=== PATIENT | female | born 1995 | race Caucasian/White ===

== ENCOUNTER 2022-02-06 12:21 | Emergency (ER) | payer OTHER ==
[2022-02-06 13:21] VITALS: TEMP 98.2
--- NOTE | 2022-02-06 14:15 | ED ---
Nausea/Vomiting/Diarrhea HPI - General Chief complaint: Nausea/Vomiting/Diarrhea Stated complaint: 13 wks preg/N&V Time Seen by Provider: 02/06/22 14:04 Source: patient, RN notes reviewed Mode of arrival: ambulatory - History of Present Illness Initial comments: Patient is a 26-year-old female presents the emergency room with her spouse with complaints of severe nausea and vomiting. She reports that she has had nausea by vomiting her entire but over the last 24 hours she has been unable to keep her anti-medics down and was advised by her bed to go to the emergency room. She reports that now that she was 13 weeks she was optimistic that her nausea would improve however as stated above symptoms have worsened over the last 24 hours. She has tried ODT Zofran and, oral promethazine and was recently given a prescription for Reglan however she has not taken that medication yet. She denies any other significant past medical history, complaints or concerns. - Related Data Previous Rx's Medication Instructions Recorded Ondansetron Odt [Zofran Odt] 8 mg PO Q8HR PRN 10 Days #30 tab 02/06/22 Promethazine Suppository 12.5 mg RECTAL PC-BID PRN #10 02/06/22 [Phenergan] suppositor Allergies Allergy/AdvReac Type Severity Reaction Status Date / Time Penicillins Allergy Rash/Hives Verified 02/06/22 13:21 Review of Systems ROS Statement: Those systems with pertinent positive or pertinent negative responses have been documented in the HPI. ROS Other: All systems not noted in ROS Statement are negative. Past Medical History Past Medical History: No Reported History History of Any Multi-Drug Resistant Organisms: None Reported Past Surgical History: No Surgical Hx Reported Past Psychological History: No Psychological Hx Reported Smoking Status: Never smoker Past Alcohol Use History: None Reported Past Drug Use History: None Reported General Exam General appearance: alert, in no apparent distress Head exam: Present: atraumatic, normocephalic, normal inspection Eye exam: Present: normal appearance, PERRL, EOMI. Absent: scleral icterus, conjunctival injection, periorbital swelling ENT exam: Present: normal exam, mucous membranes moist Neck exam: Present: normal inspection. Absent: tenderness, meningismus, lymphadenopathy Respiratory exam: Present: normal lung sounds bilaterally. Absent: respiratory distress, wheezes, rales, rhonchi, stridor Cardiovascular Exam: Present: regular rate, normal rhythm, normal heart sounds. Absent: systolic murmur, diastolic murmur, rubs, gallop, clicks GI/Abdominal exam: Present: soft, normal bowel sounds Back exam: Present: normal inspection Neurological exam: Present: alert, oriented X3, CN II-XII intact Psychiatric exam: Present: normal affect, normal mood Skin exam: Present: warm, dry, intact, normal color. Absent: rash Course Vital Signs 02/06/22 02/06/22 13:15 15:11 Temperature 98.2 F Pulse Rate 75 62 Respiratory 18 16 Rate Blood Pressure 100/61 109/67 O2 Sat by Pulse 100 100 Oximetry Medical Decision Making - Medical Decision Making Nausea improved with Zofran. Electrolytes with derangement noted. IV fluids 0.9 normal saline to be given. No indication for further diagnostic testing at this time except repeat BMP after normal saline bolus. Potassium level improved after 0.9 fluid bolus. Still with metabolic acidosis noted. Will give additional IV fluids of D5 o.45 with 1 amp of bicarbonate and monitor response. Patient currently resting comfortably. Patient responded well to IV Zofran and IV hydration. Will arrange discharge and refill her Zofran ODT and also provide promethazine suppositories as needed. Encourage follow-up with PCP and DIVORCE MEDIATOR. Case discussed with Dr. Starks. - Lab Data Result diagrams: 02/06/22 16:32 Lab Results 02/06/22 02/06/22 02/06/22 Range/Units 15:00 15:00 15:00 Sodium 135 L (137-145) mmol/L Potassium 5.2 H (3.5-5.1) mmol/L Chloride 105 (98-107) mmol/L Carbon Dioxide 17 L (22-30) mmol/L Anion Gap 13 mmol/L BUN 7 (7-17) mg/dL Creatinine 0.39 L (0.52-1.04) mg/dL Est GFR (CKD-EPI)AfAm >90 (>60 ml/min/1.73 sqM) Est GFR (CKD-EPI)NonAf >90 (>60 ml/min/1.73 sqM) Glucose 61 L (74-99) mg/dL Calcium 9.4 (8.4-10.2) mg/dL Coronavirus (PCR) Not Detected (Not Detectd) Influenza Type A RNA Not Detected (Not Detectd) Influenza Type B (PCR) Not Detected (Not Detectd) 02/06/22 Range/Units 16:32 Sodium 135 L (137-145) mmol/L Potassium 4.0 (3.5-5.1) mmol/L Chloride 109 H (98-107) mmol/L Carbon Dioxide 16 L (22-30) mmol/L Anion Gap 10 mmol/L BUN 7 (7-17) mg/dL Creatinine 0.34 L (0.52-1.04) mg/dL Est GFR (CKD-EPI)AfAm >90 (>60 ml/min/1.73 sqM) Est GFR (CKD-EPI)NonAf >90 (>60 ml/min/1.73 sqM) Glucose 75 (74-99) mg/dL Calcium 8.1 L (8.4-10.2) mg/dL Coronavirus (PCR) (Not Detectd) Influenza Type A RNA (Not Detectd) Influenza Type B (PCR) (Not Detectd) Disposition Clinical Impression: Nausea and vomiting during Disposition: HOME SELF-CARE Condition: Stable Instructions (If sedation given, give patient instructions): Acute Nausea and Vomiting (ED) Additional Instructions: Utilize Zofran and/or promethazine as needed for nausea. Please follow-up with your COTTON CLASSER AIDE per their recommendations. Along with her PCP. Drink plenty of fluids and follow a bland diet. Please return to the Emergency Department if symptoms worsen or any other concerns. Prescriptions: Promethazine Suppository [Phenergan] 12.5 mg RECTAL PC-BID PRN #10 suppositor PRN Reason: Vomiting Ondansetron Odt [Zofran Odt] 8 mg PO Q8HR PRN 10 Days #30 tab PRN Reason: Nausea Is patient prescribed a controlled substance at d/c from ED?: No Referrals: None,Stated [Primary Care Provider] - 1-2 days (Your COTTON CLASSER AIDE) Time of Disposition: 18:59
[2022-02-06] MEDS ORDERED: ONDANSETRON 4 MG/2 ML VIAL IVP STA (14:19)
[2022-02-06] MEDS ORDERED: SODIUM CHLORIDE 0.9% 1,000 ML IV STA (14:19)
[2022-02-06 15:12] VITALS: BP 109/67; PULSE 62; RESP 16
[2022-02-06 15:24] LABS: African American GFR (CKD) >90 (>60 ml/min/1.73 sqM); Anion Gap 13 mmol/L; Blood Urea Nitrogen 7 mg/dL (7-17); Calcium 9.4 mg/dL (8.4-10.2); Carbon Dioxide 17 mmol/L (22-30); Chloride 105 mmol/L (98-107); Glucose 61 mg/dL (74-99); Non-African American GFR(CKD) >90 (>60 ml/min/1.73 sqM); Sodium 135 mmol/L (137-145)
[2022-02-06 15:26] LABS: Potassium 5.2 mmol/L (3.5-5.1)
[2022-02-06 16:49] LABS: African American GFR (CKD) >90 (>60 ml/min/1.73 sqM); Anion Gap 10 mmol/L; Blood Urea Nitrogen 7 mg/dL (7-17); Calcium 8.1 mg/dL (8.4-10.2); Carbon Dioxide 16 mmol/L (22-30); Chloride 109 mmol/L (98-107); Glucose 75 mg/dL (74-99); Non-African American GFR(CKD) >90 (>60 ml/min/1.73 sqM); Sodium 135 mmol/L (137-145)
[2022-02-06] MEDS ORDERED: DEXTROSE 5%-0.45% NACL 1,000 ML with SODIUM BICARB (1 MEQ/ML) 50 ML IV ONE ×2 (18:00)
== END 2022-02-06 22:10 | disposition home or self-care (01) ==
LOC: EC 12:21
DX: O21.9 Vomiting of pregnancy, unspecified (principal); Z20.822 Contact with and (suspected) exposure to COVID-19; Z88.0 Allergy status to penicillin; Z3A.13 13 weeks gestation of pregnancy
CPT/HCPCS: 36415; 80048; 87502; 87635; 99284; 96365; 96366; 96361; 96375; J2405

== ENCOUNTER 2022-03-16 15:37 | Emergency (ER) | payer OTHER ==
[2022-03-16 15:51] VITALS: RESP 18
[2022-03-16] MEDS ORDERED: SODIUM CHLORIDE 0.9% 1,000 ML IV STA (16:08)
[2022-03-16] MEDS ORDERED: ONDANSETRON 4 MG/2 ML VIAL IVP STA (16:08)
[2022-03-16 16:37] LABS: Basophils % (A) 0 %; Eosinophils # (A) 0.2 k/uL (0-0.7); Eosinophils % (A) 1 %; HCT 37.3 % (34.0-46.0); HGB 12.6 gm/dL (11.4-16.0); Lymphocytes # (A) 1.3 k/uL (1.0-4.8); Lymphocytes % (A) 11 %; MCH 32.6 pg (25.0-35.0); MCHC 33.7 g/dL (31.0-37.0); MCV 96.6 fL (80.0-100.0); Mean Platelet Volume 9.2; Monocytes # (A) 0.4 k/uL (0-1.0); Monocytes % (A) 3 %; Neutrophils % (A) 83 %; Platelet Count 228 k/uL (150-450); RBC 3.86 m/uL (3.80-5.40); RDW 13.5 % (11.5-15.5)
[2022-03-16] MEDS ORDERED: ACETAMINOPHEN TAB 325 MG TAB PO STA (16:44)
[2022-03-16 16:46] LABS: ALT 17 U/L (4-34); AST 38 U/L (14-36); African American GFR (CKD) >90 (>60 ml/min/1.73 sqM); Albumin 3.9 g/dL (3.5-5.0); Alkaline Phosphatase 58 U/L (38-126); Amylase 58 U/L (30-110); Anion Gap 9 mmol/L; Blood Urea Nitrogen 5 mg/dL (7-17); Calcium 9.5 mg/dL (8.4-10.2); Carbon Dioxide 23 mmol/L (22-30); Chloride 104 mmol/L (98-107); Glucose 96 mg/dL (74-99); Lipase 77 U/L (23-300); Non-African American GFR(CKD) >90 (>60 ml/min/1.73 sqM); Potassium 3.6 mmol/L (3.5-5.1); Sodium 136 mmol/L (137-145); Total Bilirubin 0.4 mg/dL (0.2-1.3); Total Protein 6.7 g/dL (6.3-8.2)
--- NOTE | 2022-03-16 16:49 | US ---
EXAMINATION TYPE: US abdomen limited DATE OF EXAM: 03/16/2022 COMPARISON: NONE CLINICAL HISTORY: B/L upper quadrant abdominal pain. Pt states ABD pain TECHNIQUE: Multiple sonographic images of the right upper quadrant are obtained. FINDINGS: EXAM MEASUREMENTS: Liver Length: 14.1 cm Gallbladder Wall: 0.2 cm CBD: 0.7 cm Right Kidney: 10.4 x 3.9 x 4.7 cm ASSOCIATE SOFTWARE ENGINEER NOTES: Pancreas: Obscured by bowel gas Liver: Visualized portions appeared wnl Gallbladder: Gallstones at fundus Evidence for sonographic Abreu's sign: Yes CBD: Dilated Right Kidney: Visualized portions appeared wnl IMPRESSION: There are multiple small gallstones. Intrahepatic bile ducts are not dilated. Common bile duct is rel atively large and could relate to gallbladder dysfunction.
--- NOTE | 2022-03-16 16:52 | US ---
EXAMINATION TYPE: US OB >= 14 wk fetus DATE OF EXAM: 03/16/2022 COMPARISON: None CLINICAL HISTORY: abdominal painABD pain TECHNIQUE: Transabdominal (TA) GESTATIONAL AGE / DATING Physician Established: (18 weeks/4 days) EDC: 08/13/2022 Dates by LMP: LMP unknown Dates by First Scan: No previous this is first scan Dates by Current Scan: (18weeks/6 days) EDC: 08/11/2022 SURVEY IUP: Single PLACENTA: Anterior PREVIA: No Previa IHS: 10.9 Normal CERVICAL LENGTH (transabdominal: norm > 3.0cm): 3.3cm BIOMETRY PRESENTATION: Vertex BPD: 4.4 cm 19 weeks / 2 days HC: 16.4 cm 19 weeks / 1 days AC: 12.9 cm 18 weeks / 4 days FL: 27 cm 18 weeks / 2 days ESTIMATED WEIGHT IN GRAMS: 242 grams ESTIMATED WEIGHT IN LBS/OZ: 0 lbs. 9 oz. WEIGHT PERCENTAGE BASED ON ESTABLISHED DATES: 39% HC/AC: 1.27 Normal FL/AC: 21 Normal HEART RATE: 147 bpm RHYTHM: Normal Single, viable IUP- No abnormality visualized at this time IMPRESSION: The ultrasound gestational age is 18 weeks and 6 days. No complicating process seen.
--- NOTE | 2022-03-16 17:42 | ED ---
Abdominal Pain HPI - General Chief Complaint: Abdominal Pain Stated Complaint: abd pain Time Seen by Provider: 03/16/22 16:00 Source: patient, EMS Mode of arrival: EMS - History of Present Illness Initial Comments: Patient is a 26-year-old female currently about 17 weeks presenting with chief complaint of upper abdominal pain. Patient states that she was at work when she felt sudden onset of bilateral upper quadrant pain. She says the pain was sharp in 10 out of 10, she felt nauseous and was worried she may pass out due to the pain. Patient had coworkers called EMS. Patient states that at this time the patient is about a 3 out of 10. She denies any pelvic cramping or vaginal bleeding or discharge. Patient last saw her collision repair technician about one week ago and states that everything was normal in her . She denies any diarrhea, hematochezia, melena, dysuria, hematuria, fever, chills, chest pain, shortness of breath. - Related Data Home Medications Medication Instructions Recorded Confirmed Docusate [Colace] 100 mg PO DAILY PRN 03/16/22 03/16/22 Folic Acid 1 mg PO DAILY 03/16/22 03/16/22 Melatonin 5 mg PO HS PRN 03/16/22 03/16/22 Vft-Rqzz-Dwzce Acid 1 cap PO DAILY 03/16/22 03/16/22 [-U Capsule (formulary)] Previous Rx's Medication Instructions Recorded Ondansetron Odt [Zofran Odt] 8 mg PO Q8HR PRN 10 Days #30 tab 02/06/22 Allergies Allergy/AdvReac Type Severity Reaction Status Date / Time Penicillins Allergy Rash/Hives Verified 03/16/22 17:18 Review of Systems ROS Statement: Those systems with pertinent positive or pertinent negative responses have been documented in the HPI. ROS Other: All systems not noted in ROS Statement are negative. Past Medical History Past Medical History: No Reported History History of Any Multi-Drug Resistant Organisms: None Reported Past Surgical History: No Surgical Hx Reported Past Psychological History: No Psychological Hx Reported Smoking Status: Never smoker Past Alcohol Use History: None Reported Past Drug Use History: None Reported General Exam Limitations: no limitations General appearance: alert, in no apparent distress Head exam: Present: atraumatic, normocephalic, normal inspection Eye exam: Present: normal appearance, EOMI. Absent: scleral icterus, periorbital swelling Neck exam: Present: normal inspection, full ROM Respiratory exam: Present: normal lung sounds bilaterally. Absent: respiratory distress, wheezes, rales, rhonchi, stridor Cardiovascular Exam: Present: regular rate, normal rhythm, normal heart sounds. Absent: systolic murmur, diastolic murmur, rubs, gallop, clicks GI/Abdominal exam: Present: soft. Absent: distended, tenderness, guarding, rebound, rigid Neurological exam: Present: alert, oriented X3, CN II-XII intact Psychiatric exam: Present: normal affect, normal mood Skin exam: Present: warm, dry, intact, normal color. Absent: rash Course Vital Signs 03/16/22 03/16/22 15:46 18:16 Pulse Rate 61 62 Respiratory 18 18 Rate Blood Pressure 98/54 98/64 O2 Sat by Pulse 100 96 Oximetry Medical Decision Making - Medical Decision Making Patient is a 26-year-old female currently about 17 weeks presenting with chief complaint of bilateral upper quadrant pain. Pain was sudden in onset today, associated with nausea. No vaginal bleeding or pelvic cramping. At time of presentation patient states that pain has drastically improved. On examination abdomen is soft, nontender, no Abreu sign. WBC 12.0, likely a result of . ultrasound shows gestational age of 18 weeks and 6 days. Process seen. Heart rate 147. Ultrasound shows multiple small gallstones. Common bile duct is dilated measuring 0.7 cm, intrahepatic bile ducts are not dilated. On reassessment patient states that her pain is still very minimal. She appears stable for discharge with outpatient follow-up at this time. Follow-up with PUBLISHING EDITOR and surgery. Report back to ER if any new or worsening symptoms. Discussed return parameters answered all questions. Patient conveyed verbal understanding and agreed to the plan. I discussed this case with my attending Dr. Alves. - Lab Data Result diagrams: 03/16/22 16:25 03/16/22 16:25 Lab Results 03/16/22 03/16/22 03/16/22 Range/Units 16:25 16:25 16:25 WBC 12.0 H (3.8-10.6) k/uL RBC 3.86 (3.80-5.40) m/uL Hgb 12.6 (11.4-16.0) gm/dL Hct 37.3 (34.0-46.0) % MCV 96.6 (80.0-100.0) fL MCH 32.6 (25.0-35.0) pg MCHC 33.7 (31.0-37.0) g/dL RDW 13.5 (11.5-15.5) % Plt Count 228 (150-450) k/uL MPV 9.2 Neutrophils % 83 % Lymphocytes % 11 % Monocytes % 3 % Eosinophils % 1 % Basophils % 0 % Neutrophils # 10.0 H (1.3-7.7) k/uL Lymphocytes # 1.3 (1.0-4.8) k/uL Monocytes # 0.4 (0-1.0) k/uL Eosinophils # 0.2 (0-0.7) k/uL Basophils # 0.0 (0-0.2) k/uL Sodium 136 L (137-145) mmol/L Potassium 3.6 (3.5-5.1) mmol/L Chloride 104 (98-107) mmol/L Carbon Dioxide 23 (22-30) mmol/L Anion Gap 9 mmol/L BUN 5 L (7-17) mg/dL Creatinine 0.36 L (0.52-1.04) mg/dL Est GFR (CKD-EPI)AfAm >90 (>60 ml/min/1.73 sqM) Est GFR (CKD-EPI)NonAf >90 (>60 ml/min/1.73 sqM) Glucose 96 (74-99) mg/dL Plasma Lactic Acid Aubrey 1.1 (0.7-2.0) mmol/L Calcium 9.5 (8.4-10.2) mg/dL Total Bilirubin 0.4 (0.2-1.3) mg/dL AST 38 H (14-36) U/L ALT 17 (4-34) U/L Alkaline Phosphatase 58 (38-126) U/L Total Protein 6.7 (6.3-8.2) g/dL Albumin 3.9 (3.5-5.0) g/dL Amylase 58 (30-110) U/L Lipase 77 (23-300) U/L Disposition Clinical Impression: Gallstones Disposition: HOME SELF-CARE Condition: Good Instructions (If sedation given, give patient instructions): Biliary Colic (ED), Gallstones (ED), Low Fat Diet (ED) Additional Instructions: Follow-up with PUBLISHING EDITOR and surgery. Report back to ER with any new or worsening symptoms. These include but are not limited to fever, chills, vomiting, increased pain, yellow in the findings, elevated heart rate. Is patient prescribed a controlled substance at d/c from ED?: No Referrals: None,Stated [Primary Care Provider] - 1-2 days Jose Alberto Conner MD [STAFF PHYSICIAN] - 1-2 days Time of Disposition: 17:41
[2022-03-16 18:17] VITALS: BP 98/64; PULSE 62
== END 2022-03-16 18:20 | disposition home or self-care (01) ==
LOC: EC 15:37
DX: O26.612 Liver and biliary tract disorders in pregnancy, second trimester (principal); K80.80 Other cholelithiasis without obstruction; Z3A.18 18 weeks gestation of pregnancy; Z79.899 Other long term (current) drug therapy; Z88.0 Allergy status to penicillin
CPT/HCPCS: 36415; 80053; 82150; 83605; 83690; 85025; 76705; 76805; 99284; 96374; 96361; J2405

== ENCOUNTER 2022-09-01 16:08 | Emergency (ER) | payer BC, OTHER ==
[2022-09-01 16:26] VITALS: RESP 16
[2022-09-01 17:17] LABS: Basophils # (A) 0.1 k/uL (0-0.2); Basophils % (A) 1 %; Eosinophils # (A) 0.2 k/uL (0-0.7); Eosinophils % (A) 2 %; HCT 43.4 % (34.0-46.0); HGB 14.4 gm/dL (11.4-16.0); Lymphocytes # (A) 1.5 k/uL (1.0-4.8); Lymphocytes % (A) 18 %; MCH 29.4 pg (25.0-35.0); MCHC 33.2 g/dL (31.0-37.0); MCV 88.5 fL (80.0-100.0); Mean Platelet Volume 7.7; Monocytes # (A) 0.5 k/uL (0-1.0); Monocytes % (A) 5 %; Neutrophils # (A) 6.4 k/uL (1.3-7.7); Neutrophils % (A) 73 %; Platelet Count 388 k/uL (150-450); RDW 14.6 % (11.5-15.5); WBC 8.7 k/uL (3.8-10.6)
[2022-09-01 17:26] LABS: ALT 709 U/L (4-34); AST 740 U/L (14-36); African American GFR (CKD) >90 (>60 ml/min/1.73 sqM); Albumin 4.4 g/dL (3.5-5.0); Alkaline Phosphatase 412 U/L (38-126); Amylase 67 U/L (30-110); Anion Gap 9 mmol/L; Blood Urea Nitrogen 14 mg/dL (7-17); Calcium 9.4 mg/dL (8.4-10.2); Carbon Dioxide 26 mmol/L (22-30); Chloride 104 mmol/L (98-107); Glucose 97 mg/dL (74-99); Lipase 203 U/L (23-300); Non-African American GFR(CKD) >90 (>60 ml/min/1.73 sqM); Potassium 4.2 mmol/L (3.5-5.1); Sodium 139 mmol/L (137-145); Total Bilirubin 5.7 mg/dL (0.2-1.3); Total Protein 7.7 g/dL (6.3-8.2)
--- NOTE | 2022-09-01 17:43 | US ---
EXAMINATION TYPE: US gallbladder DATE OF EXAM: 09/01/2022 COMPARISON: 03/16/22 CLINICAL HISTORY: pain. Epigastric pain since yesterday. Pt states she gets gb attacks, but this one is worse TECHNIQUE: Multiple sonographic images of the right upper quadrant are obtained. FINDINGS: EXAM MEASUREMENTS: Liver Length: 14.9 cm Gallbladder Wall: 0.24 cm CBD: 0.78 cm Right Kidney: 10.5 x 4.9 x 3.8 cm HARDWOOD FLOOR FINISHER NOTES: Pancreas: wnl Liver: wnl Gallbladder: Multiple gallstones visualized in fundus of GB Evidence for sonographic Abreu's sign: Yes CBD: appears dilated measuring 0.78cm. Measuring 1.1cm at panc head Right Kidney: wnl IMPRESSION: Numerous gallstones with mildly dilated gallbladder and consistent with acute and chronic cholecystit is.
--- NOTE | 2022-09-01 17:54 | ED ---
Abdominal Pain HPI - General Source: patient, RN notes reviewed Mode of arrival: ambulatory <Peggy Williamson - Last Filed: 09/01/22 17:55> <Eve Frank - Last Filed: 09/02/22 04:02> - General Chief Complaint: Abdominal Pain Stated Complaint: abd pain Time Seen by Provider: 09/01/22 17:53 - History of Present Illness Initial Comments: Medical screening exam: Patient is a A0 female approx 2 weeks who presents to the emergency department with a chief complaint abdominal pain. Symptoms started yesterday around 2 pm. Patient had a vaginal delivery on 08/17/[address] Edouard. Delivery went well, no complications, baby is healthy. During patient was diagnosed with gallstones which was managed conservatively due to . Patient presents today with increased pain in her right upper abdomen. Pain radiates to the back and is worsened with food intake. Patient states pain feels different than her typical gallstone pain because it is also radiating into her entire abdomen. She reports nausea with multiple episodes of vomiting, nonbloody. Took Zofran and Tylenol around 12 PM. Reports chills. Blood pressure is elevated at 147/76. Patient denies history of preeclampsia or high blood pressure during . States her pressure was actually low during her . Patient reports dizziness, headache, intermittent blurry vision, and dark urine. (Peggy Williamson) - Related Data Home Medications Medication Instructions Recorded Confirmed Docusate [Colace] 100 mg PO DAILY PRN 03/16/22 03/16/22 Folic Acid 1 mg PO DAILY 03/16/22 03/16/22 Melatonin 5 mg PO HS PRN 03/16/22 03/16/22 Rhp-Onfd-Tuhdv Acid 1 cap PO DAILY 03/16/22 03/16/22 [-U Capsule (formulary)] Previous Rx's Medication Instructions Recorded Ondansetron Odt [Zofran Odt] 8 mg PO Q8HR PRN 10 Days #30 tab 02/06/22 Allergies Allergy/AdvReac Type Severity Reaction Status Date / Time Penicillins Allergy Rash/Hives Verified 09/01/22 16:26 Review of Systems ROS Other: All systems not noted in ROS Statement are negative. <Peggy Williamson - Last Filed: 09/01/22 17:55> ROS Other: All systems not noted in ROS Statement are negative. <Eve Frank - Last Filed: 09/02/22 04:02> ROS Statement: Those systems with pertinent positive or pertinent negative responses have been documented in the HPI. Past Medical History Past Medical History: No Reported History History of Any Multi-Drug Resistant Organisms: None Reported Past Surgical History: No Surgical Hx Reported Past Psychological History: No Psychological Hx Reported Smoking Status: Never smoker Past Alcohol Use History: None Reported Past Drug Use History: None Reported <Peggy Williamson - Last Filed: 09/01/22 17:55> General Exam Limitations: no limitations General appearance: alert, in no apparent distress Head exam: Present: atraumatic, normocephalic, normal inspection Eye exam: Present: normal appearance Neck exam: Present: normal inspection, full ROM Respiratory exam: Present: normal lung sounds bilaterally. Absent: respiratory distress, wheezes, rales, rhonchi, stridor Cardiovascular Exam: Present: regular rate, normal rhythm, normal heart sounds. Absent: systolic murmur, diastolic murmur, rubs, gallop, clicks GI/Abdominal exam: Present: soft, tenderness (Right upper quadrant). Absent: distended, guarding, rebound, rigid Extremities exam: Absent: pedal edema Neurological exam: Present: alert, oriented X3, CN II-XII intact Psychiatric exam: Present: normal affect, normal mood Skin exam: Present: warm, dry, intact, normal color. Absent: rash <Eve Frank - Last Filed: 09/02/22 04:02> Course Vital Signs 09/01/22 09/01/22 09/01/22 16:23 18:12 20:19 Temperature 98.4 F 98.4 F Pulse Rate 74 74 62 Respiratory 16 16 16 Rate Blood Pressure 147/76 113/69 102/58 O2 Sat by Pulse 97 99 98 Oximetry 09/01/22 22:21 Temperature 98.6 F Pulse Rate 70 Respiratory 16 Rate Blood Pressure 110/78 O2 Sat by Pulse 98 Oximetry Medical Decision Making - Lab Data Result diagrams: 09/01/22 17:08 09/01/22 17:08 <Peggy Williamson - Last Filed: 09/01/22 17:55> - Lab Data Result diagrams: 09/01/22 17:08 09/01/22 17:08 <Eve Frank - Last Filed: 09/02/22 04:02> - Medical Decision Making Was pt. sent in by a medical professional or institution (FUENTES Carvajal, IOS ARCHITECT, urgent care, hospital, or senior care...) When possible be specific @ -No Did you speak to anyone other than the patient for history (EMS, parent, family, police, friend...)? What history was obtained from this source @ -No Did you review nursing and triage notes (agree or disagree)? Why? @ -I reviewed and agree with nursing and triage notes Were old charts reviewed (outside hosp., previous admission, EMS record, old EKG, old radiological studies, urgent care reports/EKG's, senior care records)? Report findings @ -No old charts were reviewed Differential Diagnosis (chest pain, altered mental status, abdominal pain women, abdominal pain men, vaginal bleeding, weakness, fever, dyspnea, syncope, headache, dizziness, GI bleed, back pain, seizure, CVA, palpatations, mental health)? @ -MDM Differential Abdominal Pain Women: Appendicitis, Cholecystitis, diverticulosis, ischemic bowel, pancreatitis, hepatitis, UTI, gastroenteritis, AAA, incarcerated hernia, bowel obstruction, constipation, inflammatory bowel, hepatitis, peptic ulcer disease, splenic infarction, perforated viscus, vulvitis, ovarian torsion, PID, kidney stone, placenta abruption... This is not meant to be an all-inclusive list EKG interpreted by me (3pts min.). @ -As above X-rays interpreted by me (1pt min.). @ -None done CT interpreted by me (1pt min.). @ -None done U/S interpreted by me (1pt. min.). @ -No, radiologist report is reviewed. Numerous gallstones with mildly dilated gallbladder and consistent with acute and chronic cholecystitis. Common bile du ct appears dilated measuring 0.78 cm. Measuring 1.1 L at the pancreatic head. What testing was considered but not performed or refused? (CT, X-rays, U/S, labs)? Why? @ -None What meds were considered but not given or refused? Why? @ -None Did you discuss the management of the patient with other professionals (professionals i.e. FUENTES Carvajal, IOS ARCHITECT, lab, RT, psych nurse, social service agency director, subacute nurse, teacher, school services officer, case making machine operator)? Give summary @ -No Was smoking cessation discussed for >3mins.? @ -No Was critical care preformed (if so, how long)? @ -No Were there social determinants of health that impacted care today? How? (Homelessness, low income, unemployed, alcoholism, drug addiction, t ransportation, low edu. Level, literacy, decrease access to med. care, penitentiary, rehab)? @ -No Was there de-escalation of care discussed even if they declined (Discuss DNR or withdrawal of care, Hospice)? DNR status @ -No What co-morbidities impacted this encounter? (DM, HTN, Smoking, COPD, CAD, Cancer, CVA, ARF, Chemo, Hep., AIDS, mental health diagnosis, sleep apnea, morbid obesity)? @ -2 Weeks Was patient admitted / discharged? Hospital course, mention meds given and rout e, prescriptions, significant lab abnormalities, going to OR and other pertinent info. @ -Patient is a 27-year-old female presenting with chief complaint of abdominal pain, nausea, vomiting. She is 2 weeks . On physical examination she has right upper quadrant tenderness. Total bilirubin 5.7. AST 740. ALT 709. Alkaline phosphatase 412. Gallbladder ultrasound shows cholecystitis and dilated common bile duct. We do not have GI services at this time. I spoke w latisha Kemp at [facility] who accepted transfer. Patient is given a dose of Rocephin and metronidazole. Patient is agreeable with this plan. I discussed this case with my attending Dr. Starks. Undiagnosed new problem with uncertain prognosis? @ -No Drug Therapy requiring intensive monitoring for toxicity (Heparin, Nitro, Insulin, Cardizem)? @ -No Were any procedures done? @ -No Diagnosis/symptom? @ Cholecystitis Acute, or Chronic, or Acute on Chronic? @ -Acute Uncomplicated (without systemic symptoms) or Complicated (systemic symptoms)? @ -Complicated Side effects of treatment? @ -No Exacerbation, Progression, or Severe Exacerbation? @ -No Poses a threat to life or bodily function? How? (Chest pain, [place], [place], pneumonia, PE, COPD, DKA, ARF, appy, cholecystitis, CVA, Diverticulitis, Homicidal, Suicidal, threat to staff... and all critical care pts) @ -Yes (Eve Frank) - Lab Data Lab Results 09/01/22 09/01/22 09/01/22 Range/Units 17:08 17:08 19:52 WBC 8.7 (3.8-10.6) k/uL RBC 4.90 (3.80-5.40) m/uL Hgb 14.4 (11.4-16.0) gm/dL Hct 43.4 (34.0-46.0) % MCV 88.5 (80.0-100.0) fL MCH 29.4 (25.0-35.0) pg MCHC 33.2 (31.0-37.0) g/dL RDW 14.6 (11.5-15.5) % Plt Count 388 (150-450) k/uL MPV 7.7 Neutrophils % 73 % Lymphocytes % 18 % Monocytes % 5 % Eosinophils % 2 % Basophils % 1 % Neutrophils # 6.4 (1.3-7.7) k/uL Lymphocytes # 1.5 (1.0-4.8) k/uL Monocytes # 0.5 (0-1.0) k/uL Eosinophils # 0.2 (0-0.7) k/uL Basophils # 0.1 (0-0.2) k/uL Sodium 139 (137-145) mmol/L Potassium 4.2 (3.5-5.1) mmol/L Chloride 104 (98-107) mmol/L Carbon Dioxide 26 (22-30) mmol/L Anion Gap 9 mmol/L BUN 14 (7-17) mg/dL Creatinine 0.61 (0.52-1.04) mg/dL Est GFR (CKD-EPI)AfAm >90 (>60 ml/min/1.73 sqM) Est GFR (CKD-EPI)NonAf >90 (>60 ml/min/1.73 sqM) Glucose 97 (74-99) mg/dL Plasma Lactic Acid Aubrey (0.7-2.0) mmol/L Calcium 9.4 (8.4-10.2) mg/dL Magnesium (1.6-2.3) mg/dL Total Bilirubin 5.7 H (0.2-1.3) mg/dL AST 740 H (14-36) U/L ALT 709 H (4-34) U/L Alkaline Phosphatase 412 H (38-126) U/L Lactate Dehydrogenase (313-618) U/L Total Protein 7.7 (6.3-8.2) g/dL Albumin 4.4 (3.5-5.0) g/dL Amylase 67 (30-110) U/L Lipase 203 (23-300) U/L Urine Color Yellow Urine Appearance Clear (Clear) Urine pH 6.0 (5.0-8.0) Ur Specific [place] 1.010 (1.001-1.035) Urine Protein Negative (Negative) Urine Glucose (UA) Negative (Negative) Urine Ketones Negative (Negative) Urine Blood Negative (Negative) Urine Nitrite Negative (Negative) Urine Bilirubin 2+ H (Negative) Urine Urobilinogen <2.0 (<2.0) mg/dL Ur Leukocyte Esterase Trace H (Negative) Urine RBC 2 (0-5) /hpf Urine WBC 3 (0-5) /hpf Ur Squamous Epith Cells 2 (0-4) /hpf Urine Bacteria Rare H (None) /hpf Hyaline Casts 1 (0-2) /lpf 09/01/22 09/01/22 Range/Units 19:52 19:52 WBC (3.8-10.6) k/uL RBC (3.80-5.40) m/uL Hgb (11.4-16.0) gm/dL Hct (34.0-46.0) % MCV (80.0-100.0) fL MCH (25.0-35.0) pg MCHC (31.0-37.0) g/dL RDW (11.5-15.5) % Plt Count (150-450) k/uL MPV Neutrophils % % Lymphocytes % % Monocytes % % Eosinophils % % Basophils % % Neutrophils # (1.3-7.7) k/uL Lymphocytes # (1.0-4.8) k/uL Monocytes # (0-1.0) k/uL Eosinophils # (0-0.7) k/uL Basophils # (0-0.2) k/uL Sodium (137-145) mmol/L Potassium (3.5-5.1) mmol/L Chloride (98-107) mmol/L Carbon Dioxide (22-30) mmol/L Anion Gap mmol/L BUN (7-17) mg/dL Creatinine (0.52-1.04) mg/dL Est GFR (CKD-EPI)AfAm (>60 ml/min/1.73 sqM) Est GFR (CKD-EPI)NonAf (>60 ml/min/1.73 sqM) Glucose (74-99) mg/dL Plasma Lactic Acid Aubrey 1.2 (0.7-2.0) mmol/L Calcium (8.4-10.2) mg/dL Magnesium 2.3 (1.6-2.3) mg/dL Total Bilirubin (0.2-1.3) mg/dL AST (14-36) U/L ALT (4-34) U/L Alkaline Phosphatase (38-126) U/L Lactate Dehydrogenase 2195 H (313-618) U/L Total Protein (6.3-8.2) g/dL Albumin (3.5-5.0) g/dL Amylase (30-110) U/L Lipase (23-300) U/L Urine Color Urine Appearance (Clear) Urine pH (5.0-8.0) Ur Specific [place] (1.001-1.035) Urine Protein (Negative) Urine Glucose (UA) (Negative) Urine Ketones (Negative) Urine Blood (Negative) Urine Nitrite (Negative) Urine Bilirubin (Negative) Urine Urobilinogen (<2.0) mg/dL Ur Leukocyte Esterase (Negative) Urine RBC (0-5) /hpf Urine WBC (0-5) /hpf Ur Squamous Epith Cells (0-4) /hpf Urine Bacteria (None) /hpf Hyaline Casts (0-2) /lpf Disposition <Peggy Williamson - Last Filed: 09/01/22 17:55> Time of Disposition: 20:49 - Out of Hospital Transfer - Req. Specs Out of Hospital Transfer - Requested Specifics: Other Emergency Center ([facility]) <Eve Frank - Last Filed: 09/02/22 04:02> Clinical Impression: Cholecystitis, Common bile duct dilatation, Elevated bilirubin Disposition: OTHER INSTITUTION NOT DEFINED Condition: Serious Referrals: None,Stated [Primary Care Provider] - 1-2 days
[2022-09-01 20:18] LABS: Appearance,Urine Clear (Clear); Bacteria,Urine Rare /hpf; Bilirubin,Urine 2+ (Negative); Blood,Urine Negative (Negative); Color,Urine Yellow; Glucose,Urine (UA) Negative (Negative); Hyaline Casts,Urine 1 /lpf (0-2); Ketones,Urine Negative (Negative); Leukocyte Esterase,Urine Trace (Negative); Nitrite,Urine Negative (Negative); Protein,Urine Negative (Negative); RBC,Urine 2 /hpf (0-5); Squamous Epithelial Cell,Urine 2 /hpf (0-4); Urobilinogen,Urine <2.0 mg/dL (<2.0); WBC,Urine 3 /hpf (0-5)
[2022-09-01 20:19] LABS: Magnesium 2.3 mg/dL (1.6-2.3)
[2022-09-01] MEDS ORDERED: SODIUM CHLORIDE 0.9% 1,000 ML IV ONE (20:48)
[2022-09-01] MEDS ORDERED: cefTRIAXone IN SWFI 1,000 MG/10 ML SYRINGE IVP STA (20:50)
[2022-09-01] MEDS ORDERED: metroNIDAZOLE-NS PMX 500 MG in SALINE 1 100ML.BAG IVPB STA (20:50)
[2022-09-01 22:23] VITALS: BP 110/78; PULSE 70; TEMP 98.6
== END 2022-09-01 22:24 | disposition other institution (70) ==
LOC: EC 16:08
DX: O90.89 Other complications of the puerperium, not elsewhere classified (principal); K81.9 Cholecystitis, unspecified; K83.8 Other specified diseases of biliary tract; E80.7 Disorder of bilirubin metabolism, unspecified; Z88.0 Allergy status to penicillin
CPT/HCPCS: 36415; 80053; 82150; 83605; 83615; 83690; 83735; 85025; 81001; 87040; 76705; 99285; 96365; 96375; 96361; J0696

== ENCOUNTER → 2023-12-15 | Outpatient (CLI) | payer BC ==
[2023-12-15 15:43] LABS: Basophils # (A) 0.05 X 10*3/uL (0.00-0.10); Basophils % (A) 0.8 %; Eosinophils % (A) 1.7 %; HCT 41.4 % (37.2-46.3); HGB 13.8 g/dL (12.0-15.0); Lymphocytes # (A) 1.89 X 10*3/uL (0.90-5.00); Lymphocytes % (A) 31.5 %; MCH 30.8 pg (27.0-32.0); MCHC 33.3 g/dL (32.0-37.0); MCV 92.4 FL (80.0-97.0); Mean Platelet Volume 10.9 FL (9.5-12.2); Monocytes % (A) 6.7 %; NRBC Per 100 WBC 0 X 10*3/uL (0.00-0.01); Neutrophils # (A) 3.55 X 10*3/uL (1.80-7.70); Neutrophils % (A) 59.1 %; Platelet Count 263 X 10*3/uL (140-440); RBC 4.48 X 10*6/uL (4.10-5.20); RDW 12.7 % (11.5-14.5)
[2023-12-15 16:12] LABS: ALT 21 U/L (8-44); AST 20 U/L (13-35); Albumin 4.7 g/dL (3.8-4.9); Albumin/Globulin Ratio 1.96 Ratio (1.60-3.17); Alkaline Phosphatase 65 U/L (41-126); BUN/Creat Ratio 21.14 Ratio (12.00-20.00); Blood Urea Nitrogen 14.8 mg/dL (9.0-27.0); Calcium 9.6 mg/dL (8.7-10.3); Carbon Dioxide 24.4 mmol/L (21.6-31.8); Chloride 103 mmol/L (96-109); Chol/HDL Ratio 3.82 Ratio; Globulin 2.4 g/dL (1.6-3.3); Glucose 85 mg/dL (70-110); LDL Cholesterol,Calculated 113.2 mg/dL (0.0-131.0); Potassium 4.2 mmol/L (3.5-5.5); Sodium 139 mmol/L (135-145); Total Bilirubin 0.3 mg/dL (0.3-1.2); Total Protein 7.1 g/dL (6.2-8.2); VLDL Calculation 19.68 mg/dL (5.00-40.00)
[2023-12-15 16:13] LABS: Follicle Stimulating Hormone 4.5 mIU/mL; Luteinizing Hormone 6.7 mIU/mL
== END | disposition home or self-care (01) ==
LOC: LABWHC1 08:49
PROVIDERS: ATTEND Family Medicine
DX: Z00.00 Encounter for general adult medical examination without abnormal findings (principal); Z13.220 Encounter for screening for lipoid disorders; Z13.1 Encounter for screening for diabetes mellitus; N92.0 Excessive and frequent menstruation with regular cycle; R53.83 Other fatigue
CPT/HCPCS: 36415; 80053; 80061; 82040; 82306; 82672; 83001; 83002; 83036; 84270; 84403; 84443; 85025

== ENCOUNTER 2024-11-23 11:29 | Emergency (ER) | payer BC ==
--- NOTE | 2024-11-23 12:12 | ED ---
Headache HPI - General Chief Complaint: Headache Stated Complaint: post-op headache Time Seen by Provider: 11/23/24 11:38 Source: patient, RN notes reviewed Mode of arrival: ambulatory Limitations: no limitations - History of Present Illness MD Complaint: headache Onset/Timin -: days(s) Onset Description: sudden Location: other ([place]) Severity scale (1-10): 4 Quality: sharp Consistency: constant, colicky Context: occurred at rest Associated Symptoms: nausea, photophobia Treatments Prior to Arrival: Acetaminophen - Related Data Home Medications Medication Instructions Recorded Confirmed Docusate [Colace] 100 mg PO DAILY PRN 03/16/22 03/16/22 Folic Acid 1 mg PO DAILY 03/16/22 03/16/22 Melatonin 5 mg PO HS PRN 03/16/22 03/16/22 Rha-Cxli-Cjhua Acid 1 cap PO DAILY 03/16/22 03/16/22 [-U Capsule (formulary)] Previous Rx's Medication Instructions Recorded Ondansetron Odt [Zofran Odt] 8 mg PO Q8HR PRN 10 Days #30 tab 02/06/22 Nitrofurantoin Monohyd/M-Cryst 100 mg PO BID #10 cap 11/23/24 [Nitrofurantoin Monohyd/M-Cryst 100 mg] Allergies Allergy/AdvReac Type Severity Reaction Status Date / Time levofloxacin [From Levaquin] Allergy Rash/Hives Verified 11/23/24 11:47 Penicillins Allergy Rash/Hives Verified 09/01/22 16:26 Review of Systems ROS Statement: Those systems with pertinent positive or pertinent negative responses have been documented in the HPI. ROS Other: All systems not noted in ROS Statement are negative. Past Medical History Past Medical History: No Reported History History of Any Multi-Drug Resistant Organisms: None Reported Past Surgical History: No Surgical Hx Reported Additional Past Surgical History / Comment(s): D&C 11/20/2024 Past Psychological History: No Psychological Hx Reported Smoking Status: Never smoker Past Alcohol Use History: None Reported Past Drug Use History: None Reported General Exam Limitations: no limitations General appearance: alert, in no apparent distress Head exam: Present: atraumatic, normocephalic, normal inspection Eye exam: Present: normal appearance, PERRL, EOMI. Absent: scleral icterus, conjunctival injection, periorbital swelling ENT exam: Present: normal oropharynx, mucous membranes moist, other (Left TM is opaque and retracted with air-fluid level. Positive bilateral maxillary TTP) Neck exam: Present: normal inspection. Absent: tenderness, meningismus, lymphadenopathy Respiratory exam: Present: normal lung sounds bilaterally. Absent: respiratory distress, wheezes, rales, rhonchi, stridor, accessory muscle use, decreased breath sounds, prolonged expiratory Cardiovascular Exam: Present: regular rate, normal rhythm, normal heart sounds. Absent: systolic murmur, diastolic murmur, rubs, gallop, clicks GI/Abdominal exam: Present: soft, tenderness (Mild suprapubic TTP without guarding), normal bowel sounds. Absent: distended, guarding, rebound, rigid Extremities exam: Present: normal inspection, full ROM, normal capillary refill. Absent: tenderness, pedal edema, joint swelling, calf tenderness Back exam: Present: normal inspection Neurological exam: Present: alert, oriented X3, CN II-XII intact Psychiatric exam: Present: normal affect, normal mood Skin exam: Present: warm, dry, intact, normal color. Absent: rash Course Vital Signs 11/23/24 11:43 Temperature 97.7 F Pulse Rate 88 Respiratory 22 Rate Blood Pressure 133/79 O2 Sat by Pulse 98 Oximetry Medical Decision Making - Medical Decision Making Was pt. sent in by a medical professional or institution (FUETNES Carvajal, WOODEN BARREL MECHANIC, urgent care, hospital, or jail...) When possible be specific @ -[No] Did you speak to anyone other than the patient for history (EMS, parent, family, police, friend...)? What history was obtained from this source @ -[No] Did you review nursing and triage notes (agree or disagree)? Why? @ -[I reviewed and agree with nursing and triage notes] Were old charts reviewed (outside hosp., previous admission, EMS record, old EKG, old radiological studies, urgent care reports/EKG's, jail records)? Report findings @ -[No old charts were reviewed] Differential Diagnosis (chest pain, altered mental status, abdominal pain women, abdominal pain men, vaginal bleeding, weakness, fever, dyspnea, syncope, headach e, dizziness, GI bleed, back pain, seizure, CVA, palpatations, mental health, musculoskeletal)? @ -Differential Headache: Migraine, tension, cluster, carbon monoxide, central venous thrombosis, pension karma temporal arteritis, acute closure glaucoma, intercranial hemorrhage, mastoiditis, sinusitis, head injury, this is not meant to be an all-inclusive list. EKG interpreted by me (3pts min.). @ -Not done X-rays interpreted by me (1pt min.). @ -[None done] CT interpreted by me (1pt min.). @ -[None done] U/S interpreted by me (1pt. min.). @ -[None done] What testing was considered but not performed or refused? (CT, X-rays, U/S, labs)? Why? @ -[None] What meds were considered but not given or refused? Why? @ -Patient declined IV Decadron Did you discuss the management of the patient with other professionals (professionals i.e. , PA, WOODEN BARREL MECHANIC, lab, RT, psych nurse, high school social studies tutor, door attendant, teacher, army senior officer, foster care case manager)? Give summary @ -[No] Was smoking cessation discussed for >3mins.? @ -[No] Was critical care preformed (if so, how long)? @ -[No] Were there social determinants of health that impacted care today? How? (Homelessness, low income, unemployed, alcoholism, drug addiction, transportation, low edu. Level, literacy, decrease access to med. care, long term, rehab)? @ -[No] Was there de-escalation of care discussed even if they declined (Discuss DNR or withdrawal of care, Hospice)? DNR status @ -[No] What co-morbidities impacted this encounter? (DM, HTN, Smoking, COPD, CAD, Cancer, CVA, ARF, Chemo, Hep., AIDS, mental health diagnosis, sleep apnea, morbid obesity)? @ -[None] Was patient admitted / discharged? Hospital course, mention meds given and route, prescriptions, significant lab abnormalities, going to OR and other pertinent info. @ -[hospital course] Undiagnosed new problem with uncertain prognosis? @ -[No] Drug Therapy requiring intensive monitoring for toxicity (Heparin, Nitro, Insulin, Cardizem)? @ -[No] Were any procedures done? @ -[No] Diagnosis/symptom? @ -[default] Acute, or Chronic, or Acute on Chronic? @ -Acute Uncomplicated (without systemic symptoms) or Complicated (systemic symptoms)? @ -Complicated Side effects of treatment? @ -[No] Exacerbation, Progression, or Severe Exacerbation? @ -[No] Poses a threat to life or bodily function? How? (Chest pain, [place], [place], pneumonia, PE, COPD, DKA, ARF, appy, cholecystitis, CVA, Diverticulitis, Homicidal, Suicidal, threat to staff... and all critical care pts) @ -[No] - Lab Data Lab Results 11/23/24 11/23/24 Range/Units 12:15 12:34 Urine Color Colorless Urine Appearance Cloudy H (Clear) Urine pH 6.5 (5.0-8.0) Ur Specific [place] 1.007 (1.001-1.035) Urine Protein Negative (Negative) Urine Glucose (UA) Negative (Negative) Urine Ketones Negative (Negative) Urine Blood Moderate H (Negative) Urine Nitrite Negative (Negative) Urine Bilirubin Negative (Negative) Urine Urobilinogen <2.0 (<2.0) mg/dL Ur Leukocyte Esterase Moderate H (Negative) Urine RBC <1 (0-5) /hpf Urine WBC 7 H (0-5) /hpf Ur Squamous Epith Cells 1 (0-4) /hpf Urine Bacteria Occasional H (None) /hpf Influenza Type A (PCR) Not Detected (Not Detectd) Influenza Type B (PCR) Not Detected (Not Detectd) RSV (PCR) Not Detected (Not Detectd) SARS-CoV-2 (PCR) Not Detected (Not Detectd) Disposition Clinical Impression: Migraine headache, UTI (urinary tract infection) Disposition: HOME SELF-CARE Condition: Good Instructions (If sedation given, give patient instructions): Migraine Headache (ED), Urinary Tract Infection in Women (ED) Additional Instructions: Increase water and cranberry juice intake. Follow-up with PCP if symptoms return or worsen. Prescriptions: Nitrofurantoin Monohyd/M-Cryst [Nitrofurantoin Monohyd/M-Cryst 100 mg] 100 mg PO BID #10 cap Is patient prescribed a controlled substance at d/c from ED?: No Referrals: Yimi Magana MD [Primary Care Provider] - 1-2 days Time of Disposition: 15:04 Decision Date: 11/23/24 Decision Time: 15:04
[2024-11-23] MEDS: METOCLOPRAMIDE 5 MG/ML 2 ML VIAL IVP STA (12:28)
[2024-11-23] MEDS: KETOROLAC 15 MG/ML 1 ML VIAL IM STA (12:36)
[2024-11-23] MEDS: KETOROLAC 15 MG/ML 1 ML VIAL IVP STA (12:37)
[2024-11-23] MEDS: diphenhydrAMINE 50 MG/ML 1 ML VIAL IVP STA (12:37)
[2024-11-23] MEDS: diphenhydrAMINE 50 MG/ML 1 ML VIAL IM STA (12:37)
[2024-11-23 13:10] LABS: Influenza A Not Detected (Not Detectd); Influenza B Not Detected (Not Detectd); RSV Not Detected (Not Detectd)
[2024-11-23] MEDS: DEXAMETHASONE SOD PHOSPHATE 4 MG/ML 1 ML VIAL IVP STA (13:19)
[2024-11-23 13:28] LABS: Appearance,Urine Cloudy (Clear); Bacteria,Urine Occasional /hpf; Bilirubin,Urine Negative (Negative); Blood,Urine Moderate (Negative); Color,Urine Colorless; Glucose,Urine (UA) Negative (Negative); Ketones,Urine Negative (Negative); Leukocyte Esterase,Urine Moderate (Negative); Nitrite,Urine Negative (Negative); PH, Urine 6.5 (5.0-8.0); Protein,Urine Negative (Negative); RBC,Urine <1 /hpf (0-5); Specific Gravity,Urine 1.007 (1.001-1.035); Squamous Epithelial Cell,Urine 1 /hpf (0-4); Urobilinogen,Urine <2.0 mg/dL (<2.0); WBC,Urine 7 /hpf (0-5)
--- NOTE | 2024-11-23 14:51 | CT ---
EXAMINATION TYPE: CT brain wo con DATE OF EXAM: 11/23/2024 COMPARISON: None CLINICAL INDICATION: Female, 29 years old with history of Headache, unlike normal migraine; PHH, Head ache, unlike normal migraine CT DLP: 1098.4 mGycm Automated exposure control for dose reduction was used. Findings: The ventricles, basal cisterns and sulci over the convexities are within normal limits and there is n o mass effect or shift of midline structures. No abnormal density is seen throughout the brain parenchyma and there is no acute intra or extra-axia l hemorrhage. The posterior fossa including the brainstem, fourth ventricle and cerebellar pontine angles appear no rmal. Intraorbital contents appear normal and symmetric. Mild mucosal inflammation in the right ethmoid and maxillary sinus The calvarium is intact. IMPRESSION: 1. No acute bleed or mass effect. 2. Mild chronic inflammatory changes in the right maxillary and ethmoid sinuses. [facility], , 11/23/2024 2:49 PM
[2024-11-23] MEDS: NITROFURANTOIN MONOHYD/M-CRYST 100 MG CAP PO STA (14:54)
[2024-11-23 15:11] VITALS: BP 123/72; PULSE 80; RESP 20; TEMP 97.9
== END 2024-11-23 15:10 | disposition home or self-care (01) ==
LOC: EC 11:29
DX: G43.909 Migraine, unspecified, not intractable, without status migrainosus (principal); N39.0 Urinary tract infection, site not specified; Z88.0 Allergy status to penicillin; Z88.1 Allergy status to other antibiotic agents
CPT/HCPCS: 81001; 87636; 70450; 99284; 96374; 96375 ×2; J1200; J2765; J1885